=== PATIENT | male | born 1965 | race Caucasian/White ===

== ENCOUNTER 2016-11-30 12:42 | Emergency (ER) | payer OTHER ==
--- NOTE | 2016-11-30 14:36 | UC ---
General HPI - HPI Summary HPI Summary: This is a 51 yo male who is reportedly otherwise healthy who presented with 2 unrelated complaints of R shoulder pain and wound on R ankle. The more concerning complaint is the ankle. He reports that ~2d ago he took his boot and sock off and noticed some redness on the anterior portion of the ankle. The following day he noticed his sock was stuck to the area and he had some bloody drainage from the area. He has kept the area covered since. He reports no fever or generalized malaise. No injury to the area. Regarding his shoulder, he reports he has had pain and reduced ROM over the last month. He reports no trauma. No attempt at treatment. - History of [facility] Complaint [facility]: SHOULDER AND LEG PAIN - Allergy/Home Medications Allergies/Adverse Reactions: Allergies Allergy/AdvReac Type Severity Reaction Status Date / Time No Known Allergies Allergy Verified 11/30/16 12:49 PMH/Surg Hx/FS Hx/Imm Hx Previously Healthy: Yes - Surgical History Surgical History: None - Family History Known Family History: Positive: None - Social History Alcohol Use: Occasionally Substance Use Type: None Smoking Status (MU): Heavy Every Day Tobacco Smoker Review of Systems Constitutional: Negative Skin: Rash Eyes: Negative ENT: Negative Respiratory: Negative Cardiovascular: Negative Gastrointestinal: Negative Genitourinary: Negative Motor: Decreased ROM Neurovascular: Negative Musculoskeletal: Negative Neurological: Negative Psychological: Negative All Other Systems Reviewed And Are Negative: Yes Physical Exam Triage Information Reviewed: Yes Appearance: Well-Appearing Vital Signs: Initial Vital Signs Temp 97.5 F 11/30/16 12:46 Pulse 87 11/30/16 12:46 Resp 18 11/30/16 12:46 BP 144/94 11/30/16 12:46 Pulse Ox 100 11/30/16 12:46 Vital Signs Reviewed: Yes Respiratory: Positive: Chest non-tender, Lungs clear, Normal breath sounds. Negative: Crackles, Rhonchi, Stridor, Wheezing Cardiovascular: Positive: RRR, No Murmur Musculoskeletal: Positive: ROM Limited @ - shoulder, slightly, Other: - TTP over biceps tendon insertion at the humeral head Skin: Positive: Other - He has erythema and breakdown of the skin over his anterior ankle in the pattern of her sock. Dressing had purulent drainage. Course/Dx - Course Course Of Treatment: This is an otherwise healthy 51 yo male with wound over his R ankle and c/o R shoulder pain. Mild infection noted over ankle wound, Rx for Keflex and Bacitracin with wound care instructions given and close PCP follow-up. Shoulder pain appears to be related to biceps tendinitis. - Differential Dx - Multi-Symptom Provider Diagnoses: 1. R ankle wound and infection. 2. R shoulder biceps head tendinitis Discharge - Discharge Plan Condition: Stable Disposition: HOME Prescriptions: Bacitracin (Topical) [Bacitraycin Plus] 500 unit TOPICAL DAILY #1 tube Cephalexin CAP* [Keflex CAP*] 500 mg PO TID #30 cap Patient Education Materials: Wound Infection (ED), Tendinitis (ED) Referrals: Lilly [facility] PA[facility] [Primary Care Provider] - 3 Days Additional Instructions: Activity: As tolerated Instructions: 1. Please take antibiotic as directed 2. Apply bacitracin ointment to the wound, cover in non-stick gauze and wrap in rolled gauze 3. Change dressing daily 4. Follow up with your PCP within the next week to ensure appropriate wound healing
== END 2016-11-30 14:31 | disposition home or self-care (01) ==
LOC: UCEAST 12:42
DX: M75.91 Shoulder lesion, unspecified, right shoulder (principal); L08.9 Local infection of the skin and subcutaneous tissue, unspecified; F17.200 Nicotine dependence, unspecified, uncomplicated
CPT/HCPCS: 99202; G0463